=== PATIENT | male | born 1975 | race Caucasian/White ===

== ENCOUNTER → 2016-10-24 | Outpatient (CLI) | payer OTHER ==
[2016-10-24 13:56] LABS: COMPLEMENT C4 25.2 MG/DL (10-40); IMMUNOGLOBULIN M 57.5 MG/DL (40-230)
[2016-10-28 08:06] LABS: ALPHA 1 ANTITRYPSIN 116 mg/dL (90-200); D001-IgE D pteronyssinus <0.10 kU/L (Class 0); E001-IgE Cat Epith/Dander < 0.10 kU/L (Class 0); E005-IgE Dog Dander < 0.10 kU/L (Class 0); F002-IgE Milk < 0.10 kU/L (Class 0); F004-IgE Wheat < 0.10 kU/L (Class 0); F013-IgE Peanut < 0.10 kU/L (Class 0); F014-IgE Soybean < 0.10 kU/L (Class 0); F026-IgE Pork < 0.10 kU/L (Class 0); F027-IgE Beef < 0.10 kU/L (Class 0); F245-IgE Egg, Whole < 0.10 kU/L (Class 0); FX02-IgE Food Mix (Sea Foods) Negative (.); G002-IgE Bermuda Grass < 0.10 kU/L (Class 0); G008-IgE Kentucky Bluegrass 0.35 kU/L (Class I); M001-IgE Penicillium chrysogen < 0.10 kU/L (Class 0); M002 IgE Cladosporium herbaru < 0.10 kU/L (Class 0); M003 IgE Aspergillus fumigatu < 0.10 kU/L (Class 0); M006-IgE Alternaria alternata < 0.10 kU/L (Class 0); T001-IgE Maple/Box Elder < 0.10 kU/L (Class 0); T003-IgE Common Silver Birch < 0.10 kU/L (Class 0); T007-IgE Oak, White < 0.10 kU/L (Class 0); T008-IgE Elm, American < 0.10 kU/L (Class 0); T015-IgE Ash, White < 0.10 kU/L (Class 0); T041-IgE Hickory, White < 0.10 kU/L (Class 0); W001-IgE Ragweed, Short < 0.10 kU/L (Class 0); W009-IgE Plantain, English < 0.10 kU/L (Class 0); W014-IgE Pigweed, Rough < 0.10 kU/L (Class 0); W018-IgE Sheep Sorrel < 0.10 kU/L (Class 0)
== END ==
LOC: M WUC 10:23
PROVIDERS: ATTEND Allergy & Immunology
DX: J30.1 Allergic rhinitis due to pollen (principal); J30.81 Allergic rhinitis due to animal (cat) (dog) hair and dander; J30.89 Other allergic rhinitis

== ENCOUNTER → 2017-09-01 | Outpatient (REF) | payer OTHER | LOC: M SFHCCLAY 11:03 | DX: B26.9 Mumps without complication (principal) ==

== ENCOUNTER → 2017-09-02 | Outpatient (CLI) | payer OTHER | LOC: M RAD 06:51 | DX: K11.20 Sialoadenitis, unspecified (principal); R59.0 Localized enlarged lymph nodes; J34.89 Other specified disorders of nose and nasal sinuses | CPT/HCPCS: 70486 ==

== ENCOUNTER → 2017-09-08 | Outpatient (REF) | payer OTHER | LOC: M SFHCCLAY 15:45 | DX: B26.9 Mumps without complication (principal) ==

== ENCOUNTER → 2017-12-10 | Outpatient (CLI) | payer OTHER ==
[2017-12-10 12:51] LABS: ALBUMIN 3.9 GM/DL (3.2-5.2); ALBUMIN/GLOBULIN RATIO 1.11 (1.00-1.93); ALKALINE PHOSPHATASE 49 U/L (45-117); ALT/SGPT 36 U/L (12-78); ANION GAP 9 MEQ/L (8-16); AST/SGOT 21 U/L (7-37); BILIRUBIN,TOTAL 0.3 MG/DL (0.2-1.0); BLOOD UREA NITROGEN 27 MG/DL (7-18); CALCIUM LEVEL 9.4 MG/DL (8.5-10.1); CARBON DIOXIDE LEVEL 27 MEQ/L (21-32); CHLORIDE LEVEL 104 MEQ/L (98-107); CHOLESTEROL LEVEL 207 MG/DL (<200); CHOLESTEROL RISK RATIO 5.447 (<5); CREATININE FOR GFR 1.09 MG/DL (0.70-1.30); GLOMERULAR FILTRATION RATE > 60.0 (>60); GLUCOSE, FASTING 97 MG/DL (70-100); HDL CHOLESTEROL 38 MG/DL (>40); LDL CHOLESTEROL 126.4 MG/DL (<100); NON-HDL-C 169 MG/DL; POTASSIUM SERUM 4.4 MEQ/L (3.5-5.1); SODIUM LEVEL 140 MEQ/L (136-145); TOTAL PROTEIN 7.4 GM/DL (6.4-8.2); TRIGLYCERIDES LEVEL 213 MG/DL (<150)
== END ==
LOC: M WUC 08:21
DX: E78.2 Mixed hyperlipidemia (principal); I10 Essential (primary) hypertension

== ENCOUNTER → 2018-03-08 | Outpatient (CLI) | payer OTHER ==
[2018-03-08 09:32] LABS: CHOLESTEROL LEVEL 172 MG/DL (<200); CHOLESTEROL RISK RATIO 4.777 (<5); HDL CHOLESTEROL 36 MG/DL (>40); NON-HDL-C 136 MG/DL; TRIGLYCERIDES LEVEL 130 MG/DL (<150)
== END ==
LOC: M WUC 08:08
DX: E78.2 Mixed hyperlipidemia (principal)
CPT/HCPCS: 80061

== ENCOUNTER → 2018-09-10 | Outpatient (CLI) | payer OTHER ==
[2018-09-10 13:11] LABS: CHOLESTEROL RISK RATIO 4.944 (<5)
== END ==
LOC: M WUC 08:34
PROVIDERS: ATTEND Nurse Practitioner Family
DX: E78.2 Mixed hyperlipidemia (principal)

== ENCOUNTER → 2018-11-02 | Outpatient (CLI) | payer OTHER ==
[~2018-11-02] MED LIST: LISI10TA4 PO; MULTCAP PO
--- NOTE | 2018-11-03 01:53 | REP ---
Clinical: Ophthalmological abnormality. Preoperative assessment. Comparison: 06/12/2005 . Technique: PA and lateral. Findings: The mediastinum and cardiac silhouette are normal. The lung meier are clear and without acute consolidation, effusion, or pneumothorax. The skeletal structures are intact and normal. Impression: 1. No acute cardiopulmonary process.
== END ==
LOC: M CLY 15:29
PROVIDERS: ATTEND Plastic Surgery Surgery of the Hand
DX: Z00.8 Encounter for other general examination (principal); H02.825 Cysts of left lower eyelid

== ENCOUNTER → 2018-11-03 | Outpatient (REF) | payer OTHER ==
[2018-11-03 12:00] LABS: HEMATOCRIT 48.5 % (42.0-52.0); HEMOGLOBIN 16.2 g/dl (13.5-17.5); MEAN CORPUSCULAR HEMOGLOBIN 29.3 pg (27.0-33.0); MEAN CORPUSCULAR HGB CONC 33.4 g/dl (32.0-36.5); MEAN CORPUSCULAR VOLUME 87.7 fl (80.0-96.0); PLATELET COUNT, AUTOMATED 248 10^3/uL (150-450); RED BLOOD COUNT 5.53 10^6/uL (4.30-6.10); WHITE BLOOD COUNT 7.7 10^3/uL (4.0-10.0)
[2018-11-03 12:46] LABS: BLOOD UREA NITROGEN 27 MG/DL (7-18); CALCIUM LEVEL 9.1 MG/DL (8.5-10.1); CARBON DIOXIDE LEVEL 27 MEQ/L (21-32); CHLORIDE LEVEL 108 MEQ/L (98-107); CREATININE FOR GFR 1.24 MG/DL (0.70-1.30); GLOMERULAR FILTRATION RATE > 60.0 (>60); GLUCOSE, FASTING 100 MG/DL (70-100); POTASSIUM SERUM 5.2 MEQ/L (3.5-5.1); SODIUM LEVEL 140 MEQ/L (136-145)
== END ==
LOC: M LAB REF 11:12
PROVIDERS: ATTEND Plastic Surgery Surgery of the Hand
DX: Z00.8 Encounter for other general examination (principal); H02.825 Cysts of left lower eyelid; E66.3 Overweight

== ENCOUNTER 2018-11-09 06:38 | Day surgery (SDC) | payer OTHER ==
[~2018-11-09] VITALS: Ht 182.9 cm; Wt 132.4 kg
[~2018-11-09 06:38] MED LIST changes: +LIDOCAINE 2% W/EPIN INJ 20ML **PRES FREE As Ordered ONE; +POVIDONE-IODINE 5% OPHTH PREP SOL 30ML As Ordered ONE
[2018-11-09] MEDS ORDERED: ceFAZolin 1GM INJ (J0690 PER 500MG) As Ordered ONE (07:13)
[2018-11-09] MEDS ORDERED: LR 1,000 ML IV ONE (07:30)
[2018-11-09] MEDS ORDERED: PROPOFOL 200 MG/20 ML VIAL As Ordered ONE ×2 (07:40→07:46)
[2018-11-09] MEDS ORDERED: MIDAZOLAM INJ 2 MG/2 ML VIAL (J2250) As Ordered ONE (07:40)
[2018-11-09] MEDS ORDERED: LIDOCAINE 2% INJ 100 MG/5 ML SDV (FOR ANES.) As Ordered ONE (07:40)
[2018-11-09] MEDS ORDERED: fentaNYL 100 MCG/2 ML INJECTION (J3010) As Ordered ONE (07:40)
[2018-11-09] MEDS ORDERED: ONDANSETRON 4MG/2ML VIAL (J2405) As Ordered ONE (07:40)
[2018-11-09] MEDS ORDERED: POLYSPORIN OPHTH OINT 3.5 GM As Ordered ONE (08:35)
[2018-11-09] MEDS ORDERED: KETOROLAC 60 MG/2 ML VIAL (J1885) As Ordered ONE (08:50)
--- NOTE | 2018-11-09 09:03 | POST-OPPD ---
Postoperative Procedure Note Date Of Procedure: November 09, 2018 PREOPERATIVE DIAGNOSIS: Left lower eyelid mass POSTOPERATIVE DIAGNOSIS: same FINDINGS: 2mm round raised mass left lower eyelid PROCEDURE: Excision left lower eyelid mass SURGEON: Dr Serrano ANESTHESIA: Local with sedation SPECIMENS: Left lower eyelid ESTIMATED BLOOD LOSS: <1cc REPLACED: none DRAINS: none COMPLICATIONS: none POSTOPERATIVE CONDITION: Stable LELIA SERRANO DO November 09, 2018 09:03
[2018-11-09] MEDS ORDERED: METOCLOPRAMIDE INJ 10MG/2ML VIAL (J2765) IV PRN (09:15)
[2018-11-09] MEDS ORDERED: PERCOCET 5MG/325MG TAB PO PRN (09:15)
[2018-11-09] MEDS ORDERED: fentaNYL 100 MCG/2 ML INJECTION (J3010) IV PRN (09:15)
[2018-11-09] MEDS ORDERED: ONDANSETRON 4MG/2ML VIAL (J2405) IV PRN (09:15)
[2018-11-09] MEDS ORDERED: LR 1,000 ML IV SCH (09:15)
[2018-11-09 09:40] VITALS: BP 126/77
--- NOTE | 2018-11-09 17:18 | RO ---
DATE OF PROCEDURE: 11/09/2018 PREOPERATIVE DIAGNOSIS: Left lower eyelid mass. POSTOPERATIVE DIAGNOSIS: Left lower eyelid mass. PROCEDURE: Excision of left lower eyelid mass. FINDINGS: 2 mm round raised hard mass, left lower eyelid. ATTENDING SURGEON: Dr. Alex ANESTHESIA: Local with sedation. SPECIMEN: Left lower eyelid mass. BLOOD LOSS: Less than 1 mL. REPLACEMENT: None. DRAINS: None. COMPLICATIONS: None. POSTOP: Stable. PROCEDURE: This is a 43-year-old male who has slow growing mass on the left lower lid right in the middle of it right at the ciliary edge. It is white in color, hard, round, 2 mm in diameter. Patient wished to have it removed. He is not able to tolerate office procedures so he was scheduled for ambulatory procedure with sedation to excise the left lower eyelid mass. Risks, benefits, and alternatives were discussed with the patient and he is ready to proceed. He was brought in to the operating room and placed in the supine position. Preoperative antibiotics were given and sequentials were placed on the lower calf. Sedation was given to the patient, 2% Lidocaine with epinephrine was used for local block with the infraorbital block as well as the direct block around the mass. After the numbing effects of Lidocaine were assured, the elliptical incision was carried out around the mass which was resected entirely. It is wide based mass, however we were able to close the edges primarily with 6-0 Prolene gut suture. Bacitracin opthalmic ointment was applied. The patient tolerated the procedure well and transferred to the recovery room in stable condition.
== END 2018-11-09 09:48 | disposition home or self-care (01) ==
LOC: M SDC 06:38
PROVIDERS: ATTEND Plastic Surgery Surgery of the Hand
DX: H02.825 Cysts of left lower eyelid (principal); I10 Essential (primary) hypertension; G47.30 Sleep apnea, unspecified; Z79.899 Other long term (current) drug therapy
CPT/HCPCS: 67840; 88307; J1885; J2250; J2405; J3010

== ENCOUNTER → 2019-03-15 | Outpatient (CLI) | payer OTHER ==
[~2019-03-15] MED LIST changes: -LIDOCAINE 2% W/EPIN INJ 20ML **PRES FREE As Ordered ONE; -POVIDONE-IODINE 5% OPHTH PREP SOL 30ML As Ordered ONE
[2019-03-15 13:19] LABS: HEMATOCRIT 48.3 % (42.0-52.0); HEMOGLOBIN 16.2 g/dl (13.5-17.5); MEAN CORPUSCULAR HEMOGLOBIN 29.6 pg (27.0-33.0); MEAN CORPUSCULAR HGB CONC 33.5 g/dl (32.0-36.5); MEAN CORPUSCULAR VOLUME 88.3 fl (80.0-96.0); PLATELET COUNT, AUTOMATED 241 10^3/uL (150-450); RED BLOOD COUNT 5.47 10^6/uL (4.30-6.10); WHITE BLOOD COUNT 5.9 10^3/uL (4.0-10.0)
[2019-03-15 13:28] LABS: ALT/SGPT 28 U/L (12-78); BILIRUBIN,TOTAL 0.5 MG/DL (0.2-1.0); BLOOD UREA NITROGEN 32 MG/DL (7-18); CALCIUM LEVEL 9.2 MG/DL (8.5-10.1); CARBON DIOXIDE LEVEL 28 MEQ/L (21-32); CHLORIDE LEVEL 108 MEQ/L (98-107); CHOLESTEROL LEVEL 179 MG/DL (<200); CHOLESTEROL RISK RATIO 4.162 (<5); CREATININE FOR GFR 1.05 MG/DL (0.70-1.30); GLOMERULAR FILTRATION RATE > 60.0 (>60); GLUCOSE, FASTING 95 MG/DL (70-100); HDL CHOLESTEROL 43 MG/DL (>40); LDL CHOLESTEROL 110 MG/DL (<100); NON-HDL-C 136 MG/DL; POTASSIUM SERUM 4.8 MEQ/L (3.5-5.1); SODIUM LEVEL 141 MEQ/L (136-145); TOTAL PROTEIN 7.3 GM/DL (6.4-8.2); TRIGLYCERIDES LEVEL 131 MG/DL (<150)
== END ==
LOC: M WUC 11:02
PROVIDERS: ATTEND Nurse Practitioner Family
DX: I10 Essential (primary) hypertension (principal); E78.2 Mixed hyperlipidemia

== ENCOUNTER → 2020-03-01 | Outpatient (CLI) | payer OTHER ==
[2020-03-01 15:04] LABS: HEMATOCRIT 50.3 % (42.0-52.0); HEMOGLOBIN 16.8 g/dl (13.5-17.5); MEAN CORPUSCULAR HEMOGLOBIN 28.8 pg (27.0-33.0); MEAN CORPUSCULAR HGB CONC 33.4 g/dl (32.0-36.5); MEAN CORPUSCULAR VOLUME 86.3 fl (80.0-96.0); PLATELET COUNT, AUTOMATED 242 10^3/uL (150-450); RED BLOOD COUNT 5.83 10^6/uL (4.30-6.10); WHITE BLOOD COUNT 5.1 10^3/uL (4.0-10.0)
[2020-03-01 15:50] LABS: ALBUMIN 3.9 GM/DL (3.2-5.2); ALT/SGPT 40 U/L (12-78); BILIRUBIN,TOTAL 0.5 MG/DL (0.2-1.0); BLOOD UREA NITROGEN 23 MG/DL (7-18); CALCIUM LEVEL 9.3 MG/DL (8.5-10.1); CARBON DIOXIDE LEVEL 26 MEQ/L (21-32); CHLORIDE LEVEL 107 MEQ/L (98-107); CHOLESTEROL LEVEL 182 MG/DL (<200); CREATININE FOR GFR 1.11 MG/DL (0.70-1.30); GLOMERULAR FILTRATION RATE > 60.0 (>60); GLUCOSE, FASTING 97 MG/DL (70-100); HDL CHOLESTEROL 35 MG/DL (>40); LDL CHOLESTEROL 114 MG/DL (<100); NON-HDL-C 147 MG/DL; POTASSIUM SERUM 4.9 MEQ/L (3.5-5.1); SODIUM LEVEL 140 MEQ/L (136-145); THYROID STIMULATING HORMONE 0.734 uIU/ML (0.358-3.740); TOTAL PROTEIN 7.6 GM/DL (6.4-8.2); TRIGLYCERIDES LEVEL 166 MG/DL (<150)
== END ==
LOC: M WUC 10:32
PROVIDERS: ATTEND Nurse Practitioner Family
DX: K21.9 Gastro-esophageal reflux disease without esophagitis (principal); I10 Essential (primary) hypertension; E78.2 Mixed hyperlipidemia; E66.01 Morbid (severe) obesity due to excess calories

== ENCOUNTER → 2020-10-05 | Outpatient (CLI) | payer OTHER ==
[~2020-10-05] MED LIST changes: +LISI10TA22 PO; -LISI10TA4 PO
[2020-10-05 10:25] LABS: CHOLESTEROL RISK RATIO 4.621 (<5)
== END ==
LOC: M WUC 08:09
PROVIDERS: ATTEND Nurse Practitioner Family
DX: E78.2 Mixed hyperlipidemia (principal)

== ENCOUNTER → 2021-12-16 | Outpatient (CLI) | payer OTHER ==
[2021-12-16 13:30] LABS: HEMATOCRIT 49.4 % (42.0-52.0); HEMOGLOBIN 16.3 g/dl (13.5-17.5); MEAN CORPUSCULAR HEMOGLOBIN 28.5 pg (27.0-33.0); MEAN CORPUSCULAR VOLUME 86.5 fl (80.0-96.0); PLATELET COUNT, AUTOMATED 256 10^3/uL (150-450); RED BLOOD COUNT 5.71 10^6/uL (4.30-6.10); WHITE BLOOD COUNT 8.3 10^3/uL (4.0-10.0)
[2021-12-16 13:54] LABS: ALBUMIN 3.9 GM/DL (3.2-5.2); ALT/SGPT 37 U/L (12-78); BILIRUBIN,TOTAL 0.6 MG/DL (0.2-1.0); BLOOD UREA NITROGEN 24 MG/DL (7-18); CALCIUM LEVEL 9.2 MG/DL (8.5-10.1); CARBON DIOXIDE LEVEL 28 MEQ/L (21-32); CHLORIDE LEVEL 106 MEQ/L (98-107); CHOLESTEROL LEVEL 166 MG/DL (<200); CHOLESTEROL RISK RATIO 4.368 (<5); CREATININE FOR GFR 1.18 MG/DL (0.70-1.30); GLOMERULAR FILTRATION RATE > 60.0 (>60); GLUCOSE, FASTING 105 MG/DL (70-100); HDL CHOLESTEROL 38 MG/DL (>40); LDL CHOLESTEROL 84 MG/DL (<100); NON-HDL-C 128 MG/DL; POTASSIUM SERUM 4.3 MEQ/L (3.5-5.1); SODIUM LEVEL 140 MEQ/L (136-145); TOTAL PROTEIN 7.3 GM/DL (6.4-8.2); TRIGLYCERIDES LEVEL 219 MG/DL (<150)
== END ==
LOC: M WUC 09:25
PROVIDERS: ATTEND Nurse Practitioner Family
DX: I10 Essential (primary) hypertension (principal); E78.2 Mixed hyperlipidemia

== ENCOUNTER → 2023-02-18 | Outpatient (CLI) | payer OTHER ==
[2023-02-18 10:39] LABS: HEMATOCRIT 47.1 % (42.0-52.0); HEMOGLOBIN 15.5 g/dl (13.5-17.5); MEAN CORPUSCULAR HEMOGLOBIN 28.9 pg (27.0-33.0); MEAN CORPUSCULAR HGB CONC 32.9 g/dl (32.0-36.5); MEAN CORPUSCULAR VOLUME 87.7 fl (80.0-96.0); PLATELET COUNT, AUTOMATED 244 10^3/uL (150-450); RED BLOOD COUNT 5.37 10^6/uL (4.30-6.10); WHITE BLOOD COUNT 6.4 10^3/uL (4.0-10.0)
[2023-02-18 11:10] LABS: ALBUMIN 3.7 G/DL (3.2-5.2); ALKALINE PHOSPHATASE 47 U/L (46-116); ALT/SGPT 30 U/L (7.0-40); AST/SGOT 14 U/L (<34); BILIRUBIN,TOTAL 0.5 MG/DL (0.3-1.2); BLOOD UREA NITROGEN 25 MG/DL (9-23); CALCIUM LEVEL 9.3 MG/DL (8.5-10.1); CARBON DIOXIDE LEVEL 28 MMOL/L (20-31); CHLORIDE LEVEL 106 MMOL/L (98-107); CHOLESTEROL LEVEL 169 MG/DL (<200); CREATININE FOR GFR 1.02 MG/DL (0.70-1.30); GLOMERULAR FILTRATION RATE > 60.0 (>60); GLUCOSE, FASTING 94 MG/DL (60-100); HDL CHOLESTEROL 39.3 MG/DL (>40); LDL CHOLESTEROL 90.7 MG/DL (<100); NON-HDL-C 129.7 MG/DL; POTASSIUM SERUM 4.4 MMOL/L (3.5-5.1); SODIUM LEVEL 140 MMOL/L (136-145); TOTAL PROTEIN 6.8 G/DL (5.7-8.2); TRIGLYCERIDES LEVEL 195 MG/DL (<150)
== END ==
LOC: M WUC 08:11
PROVIDERS: ATTEND Nurse Practitioner Family
DX: I10 Essential (primary) hypertension (principal); E78.2 Mixed hyperlipidemia

== ENCOUNTER 2023-07-03 06:00 | Day surgery (SDC) | payer OTHER ==
[~2023-07-03] VITALS: Ht 182.9 cm; Wt 147.4 kg
[~2023-07-03 06:00] MED LIST changes: +UNRESOLVED CLARIFICATION ENTRY XX SCH
[2023-07-03] MEDS ORDERED: LR 1,000 ML IV SCH ×2 (06:20→08:35)
[2023-07-03] MEDS ORDERED: ceFAZolin SOD 2 GM in IV 1 EA IV ONE (06:25)
[2023-07-03] MEDS ORDERED: ceFAZolin SOD 1 GM in D5W MINI-BAG PLUS 50 ML IV ONE (06:25)
[2023-07-03] MEDS ORDERED: ACETAMINOPHEN 1000MG 100ML IV BAG As Ordered ONE (06:50)
[2023-07-03] MEDS ORDERED: KETOROLAC 60MG 2ML VIAL As Ordered ONE (06:55)
[2023-07-03] MEDS ORDERED: LIDOCAINE 2% 100MG/5ML SDV (FOR ANES.) As Ordered ONE (06:55)
[2023-07-03] MEDS ORDERED: propofoL 200 MG/20 ML VIAL As Ordered ONE (06:55)
[2023-07-03] MEDS ORDERED: ONDANSETRON 4MG 2ML VIAL As Ordered ONE (06:55)
[2023-07-03] MEDS ORDERED: BACITRACIN OINTMENT 30GM TUBE As Ordered ONE (07:13)
[2023-07-03] MEDS ORDERED: MIDAZOLAM INJ 2MG/2ML VIAL As Ordered ONE (07:16)
[2023-07-03] MEDS ORDERED: fentaNYL 100 MCG/2 ML INJECTION As Ordered ONE (07:17)
[2023-07-03] MEDS ORDERED: HYDROMORPHONE HCL 0.5 MG/ 0.5 ML SYRINGE IV PRN (08:35)
[2023-07-03] MEDS ORDERED: ONDANSETRON 4MG 2ML VIAL IV PRN (08:35)
[2023-07-03] MEDS ORDERED: oxyCODONE 5MG TAB PO PRN (08:35)
[2023-07-03] MEDS ORDERED: fentaNYL 100 MCG/2 ML INJECTION IV PRN (08:35)
[2023-07-03] MEDS ORDERED: PERC5TAB12 PO (09:03)
[2023-07-03 10:17] VITALS: BP 132/76; TEMP 97.4; O2SAT 96
== END 2023-07-03 10:30 | disposition home or self-care (01) ==
LOC: M SDC 06:00
PROVIDERS: ATTEND Orthopaedic Surgery Hand Surgery
DX: M67.432 Ganglion, left wrist (principal); G47.30 Sleep apnea, unspecified; I10 Essential (primary) hypertension; Z79.899 Other long term (current) drug therapy
CPT/HCPCS: 25111; 88305; J0131; J0665; J0690; J1100; J1885; J2250; J2405; J3010

== ENCOUNTER → 2024-03-08 | Outpatient (CLI) | payer OTHER ==
[~2024-03-08] MED LIST changes: +PERC5TAB12 PO; -UNRESOLVED CLARIFICATION ENTRY XX SCH
[2024-03-08 10:55] LABS: THYROID STIMULATING HORMONE 1.034 uIU/ML (0.55-4.78)
[2024-03-08 10:57] LABS: ALBUMIN 3.8 G/DL (3.2-5.2); ALKALINE PHOSPHATASE 53 U/L (46-116); ALT/SGPT 34 U/L (7.0-40); AST/SGOT 22 U/L (<34); BILIRUBIN,TOTAL 0.5 MG/DL (0.3-1.2); BLOOD UREA NITROGEN 27 MG/DL (9-23); CALCIUM LEVEL 9.6 MG/DL (8.5-10.1); CARBON DIOXIDE LEVEL 29 MMOL/L (20-31); CHLORIDE LEVEL 107 MMOL/L (98-107); CHOLESTEROL LEVEL 193 MG/DL (<200); CHOLESTEROL RISK RATIO 5.18 (<5); CREATININE FOR GFR 1.15 MG/DL (0.70-1.30); GLOMERULAR FILTRATION RATE > 60.0 (>60); GLUCOSE, FASTING 118 MG/DL (60-100); HDL CHOLESTEROL 37.2 MG/DL (>40); LDL CHOLESTEROL 98.6 MG/DL (<100); NON-HDL-C 155.8 MG/DL; POTASSIUM SERUM 4.8 MMOL/L (3.5-5.1); SODIUM LEVEL 140 MMOL/L (136-145); TOTAL PROTEIN 7.2 G/DL (5.7-8.2); TRIGLYCERIDES LEVEL 286 MG/DL (<150)
[2024-03-08 10:58] LABS: FREE T4 1.33 NG/DL (0.89-1.76)
[2024-03-08 11:09] LABS: HEMOGLOBIN A1c 5.7 % (4.0-6.0)
== END ==
LOC: M WUC 08:10
PROVIDERS: ATTEND Nurse Practitioner Family
DX: K21.9 Gastro-esophageal reflux disease without esophagitis (principal); I10 Essential (primary) hypertension; E78.2 Mixed hyperlipidemia

== ENCOUNTER 2024-07-13 07:33 | Day surgery (SDC) | payer OTHER ==
[~2024-07-13] VITALS: Ht 182.9 cm; Wt 148.8 kg
[2024-07-13] MEDS ORDERED: LIDOCAINE 2% 100MG/5ML SDV (FOR ANES.) As Ordered ONE (09:11)
[2024-07-13] MEDS ORDERED: propofoL 200 MG/20 ML VIAL As Ordered ONE (09:11)
[2024-07-13 09:56] VITALS: TEMP 96.8
[2024-07-13 10:34] VITALS: BP 140/70; O2SAT 96
== END 2024-07-13 10:48 | disposition home or self-care (01) ==
LOC: M OPP 07:33
PROVIDERS: ATTEND Surgery
DX: Z12.11 Encounter for screening for malignant neoplasm of colon (principal); Z12.12 Encounter for screening for malignant neoplasm of rectum; K51.40 Inflammatory polyps of colon without complications; I10 Essential (primary) hypertension; G47.30 Sleep apnea, unspecified; Z79.899 Other long term (current) drug therapy; Z90.49 Acquired absence of other specified parts of digestive tract

== ENCOUNTER → 2025-02-06 | Outpatient (REF) | payer OTHER ==
[2025-02-06 17:49] LABS: ALT/SGPT 34.0 U/L (7.0-40); AST/SGOT 26.0 U/L (<34); CALCIUM LEVEL 9.9 MG/DL (8.5-10.1); CARBON DIOXIDE LEVEL 29.0 MMOL/L (20-31); CHLORIDE LEVEL 105.0 MMOL/L (98-107); CHOLESTEROL LEVEL 199.0 MG/DL (<200); CHOLESTEROL RISK RATIO 5.57 (<5); CREATININE FOR GFR 1.06 MG/DL (0.70-1.30); GLOMERULAR FILTRATION RATE 85.5 (>56); LDL CHOLESTEROL 109.9 MG/DL (<100); NON-HDL-C 163.3 MG/DL; POTASSIUM SERUM 4.2 MMOL/L (3.5-5.1); SODIUM LEVEL 144.0 MMOL/L (136-145); TRIGLYCERIDES LEVEL 267.0 MG/DL (<150)
[2025-02-06 17:50] LABS: BASO # 0.0 10^3/uL (0.0-0.2); BASO % 0.5 % (0.0-1.0); EOS # 0.2 10^3/uL (0.0-0.5); EOS % 2.0 % (0.0-3.0); LYMPH # 1.5 10^3/uL (1.5-5.0); LYMPH % 20.5 % (24.0-44.0); MONO # 0.6 10^3/uL (0.0-0.8); MONO % 8.5 % (2.0-8.0); NEUTROPHILS # 5.1 10^3/uL (1.5-8.5); NEUTROPHILS % 68.1 % (36.0-66.0); PLATELET COUNT, AUTOMATED 250 10^3/uL (150-450)
[2025-02-06 18:08] LABS: ESTIMATED AVERAGE GLUCOSE 128.0 MG/DL (60-110)
== END ==
LOC: M SFHCCLAY 09:27
PROVIDERS: ATTEND Nurse Practitioner Family
DX: Z01.818 Encounter for other preprocedural examination (principal); I10 Essential (primary) hypertension; E78.2 Mixed hyperlipidemia; K21.9 Gastro-esophageal reflux disease without esophagitis; R73.03 Prediabetes; G47.33 Obstructive sleep apnea (adult) (pediatric)